=== PATIENT | female | born 1965 | race American Indian/Alaskan Native ===

== ENCOUNTER 2016-12-12 19:17 | Inpatient (IN) | payer OTHER ==
[2016-12-12] MEDS ORDERED: Clindamycin Phosphate 900 MG in Sodium Chloride 0.9% 100 ML IV ONE (19:46)
[2016-12-12] MEDS ORDERED: Sodium Chloride 0.9% 1,000 ML IV ONE (19:46)
[2016-12-12] MEDS ORDERED: Morphine 2 MG/ML Syringe IVPUSH ONE (19:48)
[2016-12-12] MEDS ORDERED: Ondansetron 4 MG/2 ML SDV IV ONE (19:48)
--- NOTE | 2016-12-12 19:50 | EDM.PDOC ---
ED HPI GENERAL MEDICAL PROBLEM - General Chief Complaint: Skin Complaint Stated Complaint: BITE THAT HAS GOTTEN WORSE Time Seen by Provider: 12/12/16 19:48 Source of Information: Reports: Patient History Limitations: Reports: No Limitations - History of Present Illness INITIAL COMMENTS - FREE TEXT/NARRATIVE: got bit week ago progressively getting worse today look really bad. Left Arm Pain Score (Numeric/FACES): 6 - Related Data Allergies Allergy/AdvReac Type Severity Reaction Status Date / Time aspirin Allergy Hives Verified 12/12/16 20:03 naproxen Allergy Hives Verified 12/12/16 20:03 Home Meds: Home Meds . [No Known Home Meds] 08/14/16 [History] Past Medical History Gastrointestinal History: Reports: GERD Musculoskeletal History: Reports: Other (See Below) Other Musculoskeletal History: pinched nerve in back, rotator cuff surg Rt. surg. with arthritis. Neurological History: Reports: Concussion - Past Surgical History Musculoskeletal Surgical History: Reports: Shoulder Surgery Social & Family History - Tobacco Use Smoking Status *Q: Never Smoker Second Hand Smoke Exposure: No - Caffeine Use Caffeine Use: Reports: Soda - Recreational Drug Use Recreational Drug Use: No ED ROS GENERAL - Review of Systems Review Of Systems: ROS reveals no pertinent complaints other than HPI. ED EXAM, SKIN/RASH Exam: See Below Exam Limited By: No Limitations General Appearance: Alert, WD/WN, Mild Distress, Other (pain) Ears: Hearing Grossly Normal Throat/Mouth: Normal Voice, No Airway Compromise Head: Atraumatic Neck: Non-Tender, Full Range of Motion Respiratory/Chest: No Respiratory Distress Cardiovascular: Regular Rate, Rhythm GI/Abdominal: Soft, Non-Tender Extremities: Redness, Other (left forearm abscess with cellulitis) Neurological: Alert, Oriented, Normal Cognition, Normal Gait, No Motor/Sensory Deficits Psychiatric: Tearful Skin: Erythema Location, Skin: Upper Extremity, Left Associated features: Warmth, Tenderness, Wwelling, Inflammation Lymphatic: No Adenopathy Course - Vital Signs Last Recorded V/S: Last Vital Signs Temp 37.9 C 12/12/16 19:49 Pulse 93 12/12/16 19:49 Resp 16 12/12/16 19:49 BP 120/73 12/12/16 19:49 Pulse Ox 98 12/12/16 19:49 - Orders/Labs/Meds Orders: Active Orders 24 hr Category Date Time Status CULTURE BLOOD [BC] Stat Lab 12/12/16 19:59 Received Sodium Chloride 0.9% [Normal Saline] 1,000 ml Med 12/12/16 19:46 Active IV .BOLUS Medication Orders Sodium Chloride (Normal Saline) 1,000 mls @ 500 mls/hr IV .BOLUS ONE Stop: 12/12/16 21:45 Last Admin: 12/12/16 20:12 Dose: 500 mls/hr Labs: Laboratory Tests 12/12/16 12/12/16 12/12/16 Range/Units 19:59 19:59 19:59 WBC 13.6 H (5.0-10.0) 10^3/uL RBC 4.71 (4.2-5.4) 10^6/uL Hgb 12.7 (12.0-16.0) g/dL Hct 39.7 (37.0-47.0) % MCV 84.3 (80-100) fL MCH 27.0 (27.0-34.0) pg MCHC 32.0 L (33.0-35.0) g/dL Plt Count 364 (150-450) 10^3/uL Neut % (Auto) 78.8 H (42.2-75.2) % Lymph % (Auto) 11.2 L (20.5-50.1) % Cross % (Auto) 7.3 (2-8) % Eos % (Auto) 2.6 (1.0-3.0) % Baso % (Auto) 0.1 (0.0-1.0) % Sodium 136 (135-145) mmol/L Potassium 3.9 (3.6-5.0) mmol/L Chloride 104 (101-111) mmol/L Carbon Dioxide 23.0 (21.0-31.0) mmol/L Anion Gap 12.9 BUN 16 (7-18) mg/dL Creatinine 0.6 (0.6-1.3) mg/dL Est Cr Clr Drug Dosing 99.82 mL/min Estimated GFR (MDRD) > 60 BUN/Creatinine Ratio 26.66 Glucose 122 H (74-105) mg/dL Lactic Acid 1.4 (0.5-2.2) mmol/L Calcium 8.8 (8.4-10.2) mg/dl Total Bilirubin 0.5 (0.2-1.0) mg/dL AST 41 (10-42) IU/L ALT 54 (10-60) IU/L Alkaline Phosphatase 86 (42-121) IU/L Total Protein 7.5 (6.7-8.2) g/dl Albumin 4.1 (3.2-5.5) g/dl Globulin 3.4 Albumin/Globulin Ratio 1.21 Meds: Medications Generic Name Dose Route Start Last Admin Trade Name Freq PRN Reason Stop Dose Admin Sodium Chloride 1,000 mls @ 500 mls/hr 12/12/16 19:46 12/12/16 20:12 Normal Saline IV 12/12/16 21:45 500 mls/hr .BOLUS ONE Administration Discontinued Medications Generic Name Dose Route Start Last Admin Trade Name Freq PRN Reason Stop Dose Admin Clindamycin Phosphate 900 mg/ 106 mls @ 200 mls/hr 12/12/16 19:46 12/12/16 20 :13 Sodium Chloride IV 12/12/16 20:17 200 mls/hr ONETIME ONE Administration Morphine Sulfate 2 mg 12/12/16 19:48 12/12/16 20:17 Morphine IVPUSH 12/12/16 19:49 2 mg ONETIME ONE Administration Ondansetron HCl 4 mg 12/12/16 19:48 12/12/16 20:16 Zofran IV 12/12/16 19:49 4 mg ONETIME ONE Administration - Re-Assessments/Exams Free Text/Narrative Re-Assessment/Exam: 12/12/16 20:[address] Padilla who kindly admitted Pt. Departure - Departure Time of Disposition: 20:46 Disposition: Admitted As Inpatient 66 Condition: good Clinical Impression: Abscess Cellulitis Qualifiers: Site of cellulitis: extremity Site of cellulitis of extremity: upper extremity Laterality: left Qualified Code(s): L03.114 - Cellulitis of left upper limb - Discharge Information Forms: ED Department Discharge - My Orders Last 24 Hours: My Active Orders 12/12/16 19:46 Sodium Chloride 0.9% [Normal Saline] 1,000 ml IV .BOLUS 12/12/16 19:59 CULTURE BLOOD [BC] Stat - Assessment/Plan Last 24 Hours: My Active Orders 12/12/16 19:46 Sodium Chloride 0.9% [Normal Saline] 1,000 ml IV .BOLUS 12/12/16 19:59 CULTURE BLOOD [BC] Stat
[2016-12-12 20:32] LABS: CHLORIDE,CL 104 mmol/L (101-111); SODIUM,NA 136 mmol/L (135-145)
[2016-12-12] MEDS ORDERED: Morphine 2 MG/ML Syringe IVPUSH PRN (21:21)
[2016-12-12] MEDS ORDERED: Docusate Sodium 100 MG Cap PO PRN (21:22)
[2016-12-12] MEDS ORDERED: Ondansetron 4 MG Tab.DIS PO PRN (21:22)
[2016-12-12] MEDS ORDERED: Acetaminophen 325 MG Tab PO PRN (21:22)
[2016-12-12] MEDS ORDERED: Polyethylene Glycol 3350 Powder 17 GM Packet PO PRN (21:22)
--- NOTE | 2016-12-12 21:33 | PCM.HP ---
H&P History of Present Illness - General Date of Service: 12/12/16 Admit Problem/Dx: Admission Diagnosis/Problem Admission Diagnosis/Problem Cellulitis Source of Information: Patient - History of Present Illness Initial Comments - Free Text/Narative: The patient is a 51-year-old lady with no significant past medical history. The patient developed left upper extremity indurated area associated with the redness around it. This started as a small pimple about a week prior to admission. She has been suspecting a spider bite. She has been feeling good fever, chills. There is small amount of drainage from the area. The redness was worsening and she presented to the emergency room. Left Arm Pain Score (Numeric/FACES): 6 - Related Data Allergies/Adverse Reactions: Allergies Allergy/AdvReac Type Severity Reaction Status Date / Time aspirin Allergy Hives Verified 12/12/16 20:03 naproxen Allergy Hives Verified 12/12/16 20:03 Home Medications: Home Meds . [No Known Home Meds] 08/14/16 [History] Past Medical History Gastrointestinal History: Reports: GERD Musculoskeletal History: Reports: Other (See Below) Other Musculoskeletal History: pinched nerve in back, rotator cuff surg Rt. surg. with arthritis. Neurological History: Reports: Concussion - Past Surgical History Musculoskeletal Surgical History: Reports: Shoulder Surgery Social & Family History - Family History Family Medical History: Noncontributory - Tobacco Use Smoking Status *Q: Never Smoker Second Hand Smoke Exposure: No - Caffeine Use Caffeine Use: Reports: Soda - Recreational Drug Use Recreational Drug Use: No H&P Review of Systems - Review of Systems: Review Of Systems: See Below General: Reports: Fever, Chills Pulmonary: Denies: Shortness of Breath Cardiovascular: Denies: Chest Pain Gastrointestinal: Denies: Abdominal Pain Genitourinary: Denies: Dysuria Skin: Reports: Wound, Other (redness) Psychiatric: Denies: Anxiety Exam - Exam Exam: See Below - Vital Signs Vital Signs: Last Vital Signs Temp 36.8 C 12/12/16 21:07 Pulse 93 12/12/16 19:49 Resp 16 12/12/16 19:49 BP 120/73 12/12/16 19:49 Pulse Ox 98 12/12/16 19:49 Weight: 78.471 kg - Exam General: Alert, Oriented Neck: Supple, Trachea Midline, 2 Lungs: Clear to Auscultation, Normal Respiratory Effort Cardiovascular: Regular Rate, Regular Rhythm Abdomen: Normal Bowel Sounds, Soft Back Exam: Other (left upper extremity an area of indurationerythema around it, small amount of pussy-appearing drainage) - Patient Data Result Diagrams: 12/12/16 19:59 12/12/16 19:59 *Q Meaningful Use (ADM) - VTE *Q VTE Criteria *Q: - Stroke *Q Stroke Criteria *Q: - AMI *Q AMI Criteria *Q: - Problem List (1) Abscess SNOMED Code(s): 575778989 ICD Code: L02.91 - CUTANEOUS ABSCESS, UNSPECIFIED Status: Acute Current Visit: Yes (2) Cellulitis SNOMED Code(s): 629687663 ICD Code: L03.90 - CELLULITIS, UNSPECIFIED Status: Acute Current Visit: Yes Qualifiers: Site of cellulitis: extremity Site of cellulitis of extremity: upper extremity Laterality: left Qualified Code(s): L03.114 - Cellulitis of left upper limb Problem List Initiated/Reviewed/Updated: Yes Orders Last 24hrs: Active Orders 24 hr Category Date Time Status Antiembolic Devices [RC] PER UNIT ROUTINE Care 12/12/16 21:24 Ordered Oxygen Therapy [RC] PRN Care 12/12/16 21:22 Ordered Peripheral IV Care [RC] . DIRECTED Care 12/12/16 21:24 Ordered Up With Assistance [RC] ASDIRECTED Care 12/12/16 21:22 Ordered VTE/DVT Education [RC] PER UNIT ROUTINE Care 12/12/16 21:22 Ordered Vital Signs [RC] Q4H Care 12/12/16 21:22 Ordered Regular Diet [DIET] Diet 12/12/16 Breakfast Ordered CULTURE WOUND + SMEAR [RM] Routine Lab 12/12/16 21:20 Uncollected Acetaminophen [Tylenol] Med 12/12/16 21:22 Ordered 650 mg PO Q4H PRN Clindamycin Phosphate [Cleocin] 600 mg Med 12/12/16 21:30 Ordered Sodium Chloride 0.9% [Normal Saline] 100 ml IV Q8H Docusate Sodium [Colace] Med 12/12/16 21:22 Ordered 100 mg PO BID PRN Heparin Sodium Med 12/12/16 22:00 Ordered 5,000 units SUBCUT Q8HR Morphine Med 12/12/16 21:21 Ordered 1 mg IVPUSH Q2H PRN Ondansetron [Zofran ODT] Med 12/12/16 21:22 Ordered 4 mg PO Q6H PRN Polyethylene Glycol 3350 [MiraLAX] Med 12/12/16 21:22 Ordered 17 gm PO DAILY PRN Sodium Chloride 0.9% [Saline Flush] Med 12/12/16 21:22 Ordered 10 ml FLUSH ASDIRECTED PRN Zolpidem [Ambien] Med 12/12/16 21:22 Ordered 5 mg PO BEDTIME PRN oxyCODONE Med 12/12/16 21:21 Ordered 5 mg PO Q4H PRN Antiembolic Hose [OM.PC] Per Unit Routine Ot 12/12/16 21:23 Ordered Blood Culture x2 Reflex Set [OM.PC] Stat Ot 12/12/16 21:19 Ordered Peripheral IV Insertion Adult [OM.PC] Routine Oth 12/12/16 21:22 Ordered Saline Lock Insert [OM.PC] Routine Oth 12/12/16 21:22 Ordered Resuscitation Status Routine Resus Stat 12/12/16 21:22 Ordered Medication Orders Acetaminophen (Tylenol) 650 mg PO Q4H PRN PRN Reason: Pain (Mild 1-3)/fever Docusate Sodium (Colace) 100 mg PO BID PRN PRN Reason: Constipation Heparin Sodium (Porcine) (Heparin Sodium) 5,000 units SUBCUT Q8HR [facility] Clindamycin Phosphate 600 mg/ (Sodium Chloride) 104 mls @ 200 mls/hr IV Q8H [facility] Morphine Sulfate (Morphine) 1 mg IVPUSH Q2H PRN PRN Reason: Pain Ondansetron HCl (Zofran Odt) 4 mg PO Q6H PRN PRN Reason: nausea, able to take PO Oxycodone HCl (Oxycodone) 5 mg PO Q4H PRN PRN Reason: Pain Polyethylene Glycol (Miralax) 17 gm PO DAILY PRN PRN Reason: Constipation Sodium Chloride (Saline Flush) 10 ml FLUSH ASDIRECTED PRN PRN Reason: Keep Vein Open Zolpidem Tartrate (Ambien) 5 mg PO BEDTIME PRN PRN Reason: Sleep Assessment/Plan Comment:: 51-year-old lady who presented with subjective fever, chills the patient noted the left upper extremity pain pill that has been getting bigger and the redness around it. Cellulitis There appear to be a small amount of fluctuance Will monitor for drainage were to see if the abscess needs to be opened up We'll obtain blood cultures, wound culture The patient is from an area where MRSA is common. Start treatment with IV clindamycin pain control with Tylenol, oxycodone, IV morphine as needed DVT prophylaxis will be the subcutaneous heparin
[2016-12-12] MEDS: Clindamycin Phosphate 600 MG in Sodium Chloride 0.9% 100 ML IV SCH (22:49)
[2016-12-12] MEDS: Heparin Sodium 5,000 Units/ML Vial SUBCUT SCH (22:51)
[2016-12-12] MEDS: oxyCODONE 5 MG Tab PO PRN (22:52)
[2016-12-12] MEDS: Zolpidem 5 MG Tab PO PRN (23:47)
[2016-12-13] MEDS: oxyCODONE 5 MG Tab PO PRN ×4 (05:11→23:01)
[2016-12-13] MEDS: Heparin Sodium 5,000 Units/ML Vial SUBCUT SCH ×3 (05:50→23:07)
[2016-12-13] MEDS: Clindamycin Phosphate 600 MG in Sodium Chloride 0.9% 100 ML IV SCH ×3 (05:50→23:03)
[2016-12-13] MEDS ORDERED: oxyCODONE 5 MG Tab PO PRN (12:09)
--- NOTE | 2016-12-13 12:18 | PCM.PN ---
- General Info Date of Service: 12/13/16 Admission Dx/Problem (Free Text): Admission Diagnosis/Problem Admission Diagnosis/Problem Cellulitis Subjective Update: continue to have a low-grade fever There is more pussy drainage from today left upper extremity indurated area There is associated mother at the sharp pain worse with touching - Review of Systems General: Reports: Fever Pulmonary: Denies: shortness of breath Cardiovascular: Denies: Chest Pain Gastrointestinal: Denies: Abdominal pain Neurological: Denies: Confusion - Patient Data Vitals - most recent: Last Vital Signs Temp 37.2 C 12/13/16 11:00 Pulse 91 12/13/16 11:00 Resp 20 12/13/16 11:00 BP 114/63 12/13/16 11:00 Pulse Ox 96 12/13/16 11:00 Weight - most recent: 80.059 kg I&O - last 24 hours: Intake & Output 12/12/16 12/13/16 12/13/16 22:59 06:59 14:59 Intake Total 400 298 Output Total 100 500 Balance -100 -100 298 Med Orders - Current: Current Medications Acetaminophen (Tylenol) 650 mg PO Q4H PRN PRN Reason: Pain (Mild 1-3)/fever Docusate Sodium (Colace) 100 mg PO BID PRN PRN Reason: Constipation Heparin Sodium (Porcine) (Heparin Sodium) 5,000 units SUBCUT Q8HR [facility] Last Admin: 12/13/16 05:50 Dose: 5,000 units Clindamycin Phosphate 600 mg/ (Sodium Chloride) 104 mls @ 200 mls/hr IV Q8H [facility] Last Admin: 12/13/16 05:50 Dose: 200 mls/hr Morphine Sulfate (Morphine) 1 mg IVPUSH Q2H PRN PRN Reason: Pain Last Admin: 12/13/16 09:48 Dose: 1 mg Ondansetron HCl (Zofran Odt) 4 mg PO Q6H PRN PRN Reason: nausea, able to take PO Oxycodone HCl (Oxycodone) 5 mg PO Q4H PRN PRN Reason: Pain Last Admin: 12/13/16 11:33 Dose: 5 mg Oxycodone HCl (Oxycodone) 10 mg PO Q4H PRN PRN Reason: severe pain Polyethylene Glycol (Miralax) 17 gm PO DAILY PRN PRN Reason: Constipation Sodium Chloride (Saline Flush) 10 ml FLUSH ASDIRECTED PRN PRN Reason: Keep Vein Open Zolpidem Tartrate (Ambien) 5 mg PO BEDTIME PRN PRN Reason: Sleep Last Admin: 12/12/16 23:47 Dose: 5 mg Discontinued Medications Clindamycin Phosphate 900 mg/ (Sodium Chloride) 106 mls @ 200 mls/hr IV ONETIME ONE Stop: 12/12/16 20:17 Last Admin: 12/12/16 20:13 Dose: 200 mls/hr Sodium Chloride (Normal Saline) 1,000 mls @ 500 mls/hr IV .BOLUS ONE Stop: 12/12/16 21:45 Last Admin: 12/12/16 20:12 Dose: 500 mls/hr Morphine Sulfate (Morphine) 2 mg IVPUSH ONETIME ONE Stop: 12/12/16 19:49 Last Admin: 12/12/16 20:17 Dose: 2 mg Ondansetron HCl (Zofran) 4 mg IV ONETIME ONE Stop: 12/12/16 19:49 Last Admin: 12/12/16 20:16 Dose: 4 mg - Exam General: alert, oriented Neck: supple Lungs: Clear to auscultation, Normal respiratory effort Cardiovascular: Regular Rate, Regular Rhythm Abdomen: bowel sounds present, soft, no tenderness, no distension Extremities: edema (left upper extremity around the indurated area) Skin: other (left upper extremity about a half inch area of wound with a blister , there is induration around it and pus drainage from it) - Problem List & Annotations (1) Abscess SNOMED Code(s): 761373555 Code(s): L02.91 - CUTANEOUS ABSCESS, UNSPECIFIED Status: Acute Current Visit: Yes (2) Cellulitis SNOMED Code(s): 096108519 Code(s): L03.90 - CELLULITIS, UNSPECIFIED Status: Acute Current Visit: Yes Qualifiers: Site of cellulitis: extremity Site of cellulitis of extremity: upper extremity Laterality: left Qualified Code(s): L03.114 - Cellulitis of left upper limb - Problem List Review Problem List Initiated/Reviewed/Updated: Yes - My Orders Last 24 Hours: My Active Orders 12/12/16 21:19 Blood Culture x2 Reflex Set [OM.PC] Stat 12/12/16 21:21 Morphine 1 mg IVPUSH Q2H PRN oxyCODONE 5 mg PO Q4H PRN 12/12/16 21:22 Oxygen Therapy [RC] PRN Up With Assistance [RC] ASDIRECTED VTE/DVT Education [RC] PER UNIT ROUTINE Vital Signs [RC] Q4H Acetaminophen [Tylenol] 650 mg PO Q4H PRN Docusate Sodium [Colace] 100 mg PO BID PRN Ondansetron [Zofran ODT] 4 mg PO Q6H PRN Polyethylene Glycol 3350 [MiraLAX] 17 gm PO DAILY PRN Sodium Chloride 0.9% [Saline Flush] 10 ml FLUSH ASDIRECTED PRN Zolpidem [Ambien] 5 mg PO BEDTIME PRN Peripheral IV Insertion Adult [OM.PC] Routine Saline Lock Insert [OM.PC] Routine Resuscitation Status Routine 12/12/16 21:23 Antiembolic Hose [OM.PC] Per Unit Routine 12/12/16 21:24 Antiembolic Devices [RC] PER UNIT ROUTINE Peripheral IV Care [RC] 08,20 12/12/16 22:00 Clindamycin Phosphate [Cleocin] 600 mg Sodium Chloride 0.9% [Normal Saline] 100 ml IV Q8H Heparin Sodium 5,000 units SUBCUT Q8HR 12/13/16 12:08 Wound Care [RC] Q8H 12/13/16 12:09 oxyCODONE 10 mg PO Q4H PRN 12/14/16 05:15 BASIC METABOLIC PANEL,BMP [CHEM] AM CBC WITH AUTO DIFF [HEME] AM - Plan Plan:: 51-year-old lady who presented with subjective fever, chills the patient noted the left upper extremity pain pill that has been getting bigger and the redness around it. Cellulitis the fluctuance has resolved, blister broke, good drainage of pus Will use wet-to-dry dressing 3 times a day blood cultures: pending wound culture: pending The patient is from an area where MRSA is common. Continue treatment with IV clindamycin pain control with Tylenol, oxycodone, IV morphine as needed DVT prophylaxis will be the subcutaneous heparin
[2016-12-13] MEDS: Sodium Chloride 0.9% 10 ML Syringe FLUSH PRN ×3 (13:42→23:03)
[2016-12-13] MEDS: Pantoprazole 40 MG Vial IVPUSH SCH (17:41)
[2016-12-14] MEDS: Zolpidem 5 MG Tab PO PRN (00:33)
[2016-12-14] MEDS: Clindamycin Phosphate 600 MG in Sodium Chloride 0.9% 100 ML IV SCH (06:33)
[2016-12-14] MEDS: Heparin Sodium 5,000 Units/ML Vial SUBCUT SCH (06:33)
[2016-12-14 07:01] LABS: CHLORIDE,CL 101 mmol/L (101-111); SODIUM,NA 134 mmol/L (135-145)
[2016-12-14] MEDS: Pantoprazole 40 MG Vial IVPUSH SCH (09:54)
--- NOTE | 2016-12-14 10:16 | PCM.DCSUM1 ---
Discharge Summary - Hospital Course Free Text/Narrative:: 51-year-old lady who presented with subjective fever, chills the patient noted left upper extremity pimple that has been getting bigger and developed redness around it. Cellulitis the hardened area is getting softer, more fluctuance noted with drainage of pus the area of redness has increased somewhat in the past 24 h have been using wet-to-dry dressing 3 times a day with moist heat blood cultures: pending wound culture: pending The patient is from an area where MRSA is common. Treated with IV clindamycin pain control with Tylenol, oxycodone, IV morphine as needed I believe a surgical evaluation for possible abscess drain and incision would be reasonable surgical services are not available here Contacted [facility] for transfer - Discharge Data Discharge Date: 12/14/16 Discharge Disposition: DC/Tfer to [facility] 02 Condition: Good - Discharge Diagnosis/Problem(s) (1) Abscess SNOMED Code(s): 795056676 ICD Code: L02.91 - CUTANEOUS ABSCESS, UNSPECIFIED Status: Acute Current Visit: Yes (2) Cellulitis SNOMED Code(s): 310594489 ICD Code: L03.90 - CELLULITIS, UNSPECIFIED Status: Acute Current Visit: Yes Qualifiers: Site of cellulitis: extremity Site of cellulitis of extremity: upper extremity Laterality: left Qualified Code(s): L03.114 - Cellulitis of left upper limb - Patient Instructions Diet: Usual Diet as Tolerated Activity: As Tolerated - Discharge Plan Home Medications: Home Meds Clindamycin Phosphate [Cleocin] 600 mg IV Q8H sdv 12/14/16 [Rx] Heparin Sodium 5,000 units SUBCUT Q8HR vial 12/14/16 [Rx] Patient Handouts: Cellulitis, Adult, [id number] - Discharge Summary/Plan Comment DC Time >30 min.: Yes (arranging transfer, calling [facility] ) - General Info Admission Dx/Problem (Free Text: Admission Diagnosis/Problem Admission Diagnosis/Problem Cellulitis Subjective Update: There is more pussy drainage from today left upper extremity indurated area the redness has spread a little more There is associated moderate sharp pain worse with touching - Review of Systems Pulmonary: Denies: shortness of breath Cardiovascular: Denies: Chest Pain Gastrointestinal: Denies: Abdominal pain Genitourinary: Denies: dysuria - Patient Data Vitals - Most Recent: Last Vital Signs Temp 36.9 C 12/14/16 07:00 Pulse 79 12/14/16 07:00 Resp 20 12/14/16 07:00 BP 112/60 12/14/16 07:00 Pulse Ox 98 12/14/16 07:00 Weight - Most Recent: 80.059 kg I&O - Last 24 hours: Intake & Output 12/13/16 12/14/16 12/14/16 22:59 06:59 14:59 Intake Total 765 100 Output Total 1400 325 Balance -635 -225 Lab Results - Last 24 hrs: Laboratory Results - last 24 hr 12/14/16 12/14/16 Range/Units 06:10 06:10 WBC 12.5 H (5.0-10.0) 10^3/uL RBC 4.30 (4.2-5.4) 10^6/uL Hgb 11.5 L (12.0-16.0) g/dL Hct 36.2 L (37.0-47.0) % MCV 84.2 (80-100) fL MCH 26.7 L (27.0-34.0) pg MCHC 31.8 L (33.0-35.0) g/dL Plt Count 351 (150-450) 10^3/uL Neut % (Auto) 71.4 (42.2-75.2) % Lymph % (Auto) 20.3 L (20.5-50.1) % [place] % (Auto) 7.0 (2-8) % Eos % (Auto) 1.2 (1.0-3.0) % Baso % (Auto) 0.1 (0.0-1.0) % Sodium 134 L (135-145) mmol/L Potassium 3.6 (3.6-5.0) mmol/L Chloride 101 (101-111) mmol/L Carbon Dioxide 24.0 (21.0-31.0) mmol/L Anion Gap 12.6 BUN 12 (7-18) mg/dL Creatinine 0.6 (0.6-1.3) mg/dL Est Cr Clr Drug Dosing 99.82 mL/min Estimated GFR (MDRD) > 60 Glucose 95 (74-105) mg/dL Calcium 8.5 (8.4-10.2) mg/dl Med Orders - Current: Current Medications Acetaminophen (Tylenol) 650 mg PO Q4H PRN PRN Reason: Pain (Mild 1-3)/fever Last Admin: 12/13/16 13:50 Dose: 650 mg Docusate Sodium (Colace) 100 mg PO BID PRN PRN Reason: Constipation Heparin Sodium (Porcine) (Heparin Sodium) 5,000 units SUBCUT Q8HR [facility] Last Admin: 12/14/16 06:33 Dose: 5,000 units Clindamycin Phosphate 600 mg/ (Sodium Chloride) 104 mls @ 200 mls/hr IV Q8H [facility] Last Admin: 12/14/16 06:33 Dose: 200 mls/hr Morphine Sulfate (Morphine) 1 mg IVPUSH Q2H PRN PRN Reason: Pain Last Admin: 12/13/16 09:48 Dose: 1 mg Ondansetron HCl (Zofran Odt) 4 mg PO Q6H PRN PRN Reason: nausea, able to take PO Last Admin: 12/13/16 16:01 Dose: 4 mg Oxycodone HCl (Oxycodone) 5 mg PO Q4H PRN PRN Reason: Pain Last Admin: 12/13/16 23:01 Dose: 5 mg Oxycodone HCl (Oxycodone) 10 mg PO Q4H PRN PRN Reason: severe pain Pantoprazole Sodium (Protonix Iv) 40 mg IVPUSH DAILY [facility] Last Admin: 12/14/16 09:54 Dose: 40 mg Polyethylene Glycol (Miralax) 17 gm PO DAILY PRN PRN Reason: Constipation Sodium Chloride (Saline Flush) 10 ml FLUSH ASDIRECTED PRN PRN Reason: Keep Vein Open Last Admin: 12/13/16 23:03 Dose: 10 ml Zolpidem Tartrate (Ambien) 5 mg PO BEDTIME PRN PRN Reason: Sleep Last Admin: 12/14/16 00:33 Dose: 5 mg Discontinued Medications Clindamycin Phosphate 900 mg/ (Sodium Chloride) 106 mls @ 200 mls/hr IV ONETIME ONE Stop: 12/12/16 20:17 Last Admin: 12/12/16 20:13 Dose: 200 mls/hr Sodium Chloride (Normal Saline) 1,000 mls @ 500 mls/hr IV .BOLUS ONE Stop: 12/12/16 21:45 Last Admin: 12/12/16 20:12 Dose: 500 mls/hr Morphine Sulfate (Morphine) 2 mg IVPUSH ONETIME ONE Stop: 12/12/16 19:49 Last Admin: 12/12/16 20:17 Dose: 2 mg Ondansetron HCl (Zofran) 4 mg IV ONETIME ONE Stop: 12/12/16 19:49 Last Admin: 12/12/16 20:16 Dose: 4 mg - Exam General: Reports: alert, oriented Neck: Reports: supple Lungs: Reports: Clear to auscultation, Normal respiratory effort Cardiovascular: Reports: Regular Rate, Regular Rhythm Extremities: Reports: other (left upper area of palpable abscess, nduration, redness extending the previous) Skin: Reports: warm Psy/Mental Status: Reports: alert, normal affect, normal mood *Q Meaningful Use (DIS) - VTE *Q VTE Criteria *Q: - Stroke *Q Stroke Criteria *Q: - AMI *Q AMI Criteria *Q:
[2016-12-14] MEDS ORDERED: Meclizine 12.5 MG Tab PO ONE (11:17)
[2016-12-14 11:21] VITALS: BP 112/59
== END 2016-12-14 11:30 | DRG 603 ==
LOC: DL.ED 19:17 → EEVIPCON 21:00 → DL.MS 21:00
PROVIDERS: ADMIT Internal Medicine; ATTEND Internal Medicine
DX: L03.114 Cellulitis of left upper limb (principal); L02.414 Cutaneous abscess of left upper limb; Z88.8 Allergy status to other drugs, medicaments and biological substances
CPT/HCPCS: 36415; 80048; 80053; 83605; 85025; 87040; 87070; 87077; 87186; 96365; 96375; 99283; A9270-GY; C9113; J1644; J2270; J2405; J7030; J7050; S0077

== ENCOUNTER 2019-09-09 04:18 | Emergency (ER) | payer BC, OTHER ==
[2019-09-09] MEDS: GI Cocktail Oral Solution 30 ML PO ONE (04:45)
[2019-09-09 04:53] LABS: ANION GAP 15.6; CHLORIDE,CL 102 mmol/L (101-111); SODIUM,NA 136 mmol/L (135-145)
[2019-09-09] MEDS: Famotidine 20 MG/2 ML SDV IVPUSH ONE (05:02)
--- NOTE | 2019-09-09 05:25 | EDM.PDOC ---
ED HPI GENERAL MEDICAL PROBLEM - General Chief Complaint: Abdominal Pain Stated Complaint: PAIN MIDDLE OF STOMACH, HARD TO BREATH Time Seen by Provider: 09/09/19 04:30 Source of Information: Reports: Patient, RN Notes Reviewed History Limitations: Reports: No Limitations - History of Present Illness INITIAL COMMENTS - FREE TEXT/NARRATIVE: ED with c/o epigastric pain, similar to previous episode of acid refulx. Tonight ate fried chicken for supper, worke with pain, forced emesis x 2 to relieve discomfort, then had 2 loose stools No fever or chills tonight. States had MRI 2 weeks ago and was told had gall stones. Has been wating for call back from [facility]. No SOB, No chest pain. Epigastric Pain Score (Numeric/FACES): 7 - Related Data Allergies Allergy/AdvReac Type Severity Reaction Status Date / Time aspirin Allergy Hives Verified 09/09/19 04:33 ibuprofen Allergy Hives Verified 09/09/19 04:33 naproxen Allergy Hives Verified 09/09/19 04:33 cats Allergy Hives Uncoded 09/09/19 04:33 Home Meds: Home Meds Cholecalciferol (Vitamin D3) [Vitamin D3] 1,000 units PO DAILY 08/17/19 [History ] Letrozole 2.5 mg PO DAILY 08/17/19 [History] Multivitamin [Multivitamins] 1 tab PO DAILY 08/17/19 [History] Past Medical History - Past Health History Medical/Surgical History: Denies Medical/Surgical History HEENT History: Reports: None Cardiovascular History: Reports: None Respiratory History: Reports: Bronchitis, Recurrent Gastrointestinal History: Reports: GERD Genitourinary History: Reports: None 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 shoulder. with arthritis. Neurological History: Reports: Concussion, Migraines Psychiatric History: Reports: None Endocrine/Metabolic History: Reports: None Hematologic History: Reports: None Immunologic History: Reports: None Oncologic (Cancer) History: Reports: Breast Dermatologic History: Reports: None - Infectious Disease History Infectious Disease History: Reports: None - Past Surgical History Cardiovascular Surgical History: Reports: None Respiratory Surgical History: Reports: None GI Surgical History: Reports: None Female Surgical History: Reports: Breast Biopsy, Other (See Below) Other Female Surgeries/Procedures: R) breast lumpectomy Musculoskeletal Surgical History: Reports: Shoulder Surgery Oncologic Surgical History: Reports: Biopsy of Breast Social & Family History - Family History Family Medical History: Noncontributory - Tobacco Use Smoking Status *Q: Never Smoker - Caffeine Use Caffeine Use: Reports: None - Recreational Drug Use Recreational Drug Use: No ED ROS GENERAL - Review of Systems Review Of Systems: Comprehensive ROS is negative, except as noted in HPI. ED EXAM, GI/ABD - Physical Exam Exam: See Below Exam Limited By: No Limitations General Appearance: Alert, Mild Distress Ears: Normal External Exam Nose: Normal Inspection Throat/Mouth: Normal Inspection, Normal Lips, Normal Voice Neck: Normal Inspection Respiratory/Chest: No Respiratory Distress, Lungs Clear Cardiovascular: Normal Peripheral Pulses, Regular Rate, Rhythm GI/Abdominal Exam: Normal Bowel Sounds, Soft, Tender (epigastric) Rectal (Female) Exam: Normal Exam Back Exam: Normal Inspection Extremities: Normal Inspection Neurological: Alert, Oriented, Normal Cognition Psychiatric: Normal Mood Skin Exam: Warm, Dry, Intact, Normal Color Course - Vital Signs Last Recorded V/S: Last Vital Signs Temp 96.6 F L 09/09/19 04:24 Pulse 72 09/09/19 04:24 Resp 19 09/09/19 04:24 BP 158/78 H 09/09/19 04:24 Pulse Ox 97 09/09/19 04:24 - Orders/Labs/Meds Labs: Laboratory Tests 09/09/19 09/09/19 Range/Units 04:25 04:25 WBC 9.1 (5.0-10.0) 10^3/uL RBC 5.00 (4.2-5.4) 10^6/uL Hgb 13.5 D (12.0-16.0) g/dL Hct 41.0 (37.0-47.0) % MCV 82.0 (80-100) fL MCH 27.0 (27.0-34.0) pg MCHC 32.9 L (33.0-35.0) g/dL Plt Count 341 (150-450) 10^3/uL Neut % (Auto) 59.2 (42.2-75.2) % Lymph % (Auto) 30.4 (20.5-50.1) % [place] % (Auto) 7.7 (2-8) % Eos % (Auto) 2.5 (1.0-3.0) % Baso % (Auto) 0.2 (0.0-1.0) % Sodium 136 (135-145) mmol/L Potassium 3.6 (3.6-5.0) mmol/L Chloride 102 (101-111) mmol/L Carbon Dioxide 22.0 (21.0-31.0) mmol/L Anion Gap 15.6 BUN 16 (7-18) mg/dL Creatinine 0.5 L (0.6-1.3) mg/dL Est Cr Clr Drug Dosing 111.07 mL/min Estimated GFR (MDRD) > 60 BUN/Creatinine Ratio 32.00 Glucose 240 H (74-105) mg/dL Calcium 9.2 (8.4-10.2) mg/dl Total Bilirubin 0.6 (0.2-1.0) mg/dL AST 96 H (10-42) IU/L ALT 157 H (10-60) IU/L Alkaline Phosphatase 176 H (42-121) IU/L Total Protein 7.9 (6.7-8.2) g/dl Albumin 4.3 (3.2-5.5) g/dl Globulin 3.6 Albumin/Globulin Ratio 1.19 Amylase 45 (28-100) U/L Lipase 43 (22-51) U/L Meds: Medications Discontinued Medications Generic Name Dose Route Start Last Admin Trade Name Freq PRN Reason Stop Dose Admin Al Hydroxide/Mg Hydroxide 30 ml 09/09/19 04:37 09/09/19 04:45 Gi Cocktail PO 09/09/19 04:38 30 ml ONETIME ONE Administration Famotidine 20 mg 09/09/19 04:57 09/09/19 05:02 Pepcid IVPUSH 09/09/19 04:58 20 mg ONETIME ONE Administration Departure - Departure Time of Disposition: 05:20 Disposition: Home, Self-Care 01 Condition: Good Clinical Impression: Elevated LFTs, History of calculus of gallbladder Acid reflux Qualifiers: Esophagitis presence: without esophagitis Qualified Code(s): K21.9 - Gastro- esophageal reflux disease without esophagitis - Discharge Information *PRESCRIPTION DRUG MONITORING PROGRAM REVIEWED*: No *COPY OF PRESCRIPTION DRUG MONITORING REPORT IN PATIENT CALVIN: No Instructions: Food Choices for Gastroesophageal Reflux Disease, Adult Additional Instructions: follow up with primary care this week light diet, bland, low fat maalox or similar as needed urgent follow up severe pain, fever and chills avoid alcohol limit use of tylenol Sepsis Event Note - Evaluation Sepsis Screening Result: No Definite Risk - Focused Exam Vital Signs: Vital Signs Temp Pulse Resp BP Pulse Ox 09/09/19 04:24 96.6 F L 72 19 158/78 H 97 Date Exam was Performed: 09/09/19 Time Exam was Performed: 05:20
[2019-09-09 05:29] VITALS: BP 134/76; PULSE 78
== END 2019-09-09 05:26 | disposition home or self-care (01) ==
LOC: DL.ED 04:18
DX: K21.9 Gastro-esophageal reflux disease without esophagitis (principal); R74.8 Abnormal levels of other serum enzymes; Z88.6 Allergy status to analgesic agent; Z88.8 Allergy status to other drugs, medicaments and biological substances; Z91.048 Other nonmedicinal substance allergy status
CPT/HCPCS: 36415; 80053; 82150; 83690; 85025; 96374; 99284-25; A9270-GY; J3490

== ENCOUNTER 2020-01-31 07:26 | Day surgery (SDC) | payer MEDICAID, OTHER ==
[2020-01-31] MEDS ORDERED: fentaNYL 100 MCG/2 ML SDV IV ONE (07:27)
[2020-01-31] MEDS ORDERED: Glycopyrrolate 0.2 MG/ML 2 ML SDV IV ONE (07:27)
[2020-01-31] MEDS ORDERED: Dexamethasone 4 MG/ML SDV IV ONE (07:27)
[2020-01-31] MEDS ORDERED: Midazolam 1 MG/ML 2 ML SDV IV ONE (07:27)
[2020-01-31] MEDS ORDERED: Lactated Ringers 1,000 ML IV ONE (07:27)
[2020-01-31] MEDS ORDERED: Labetalol 20 MG/4 ML Syringe IV ONE (07:27)
[2020-01-31] MEDS ORDERED: Neostigmine Methylsulfate 10 MG/10 ML MDV IV ONE (07:27)
[2020-01-31] MEDS ORDERED: Propofol 200 MG/20 ML SDV IV ONE (07:27)
[2020-01-31] MEDS ORDERED: Ondansetron 4 MG/2 ML SDV IV ONE (07:27)
[2020-01-31] MEDS ORDERED: Rocuronium 100 MG/10 ML MDV IV ONE (07:27)
[2020-01-31] MEDS ORDERED: Lactated Ringers 1,000 ML IV SCH (08:30)
[2020-01-31] MEDS ORDERED: ceFAZolin 2 GM in Premix Bag 1 BAG IV ONE (09:15)
[2020-01-31] MEDS ORDERED: Morphine 2 MG/ML SYRINGE IVPUSH PRN (10:50)
[2020-01-31] MEDS ORDERED: Sodium Chloride 0.9% 10 ML Syringe FLUSH PRN (10:52)
[2020-01-31] MEDS: Acetaminophen/oxyCODONE 325-5 MG Tab PO PRN ×2 (11:35→18:22)
--- NOTE | 2020-01-31 11:45 | OR ---
DATE: 01/31/2020 PREOPERATIVE DIAGNOSES: Chronic cholecystitis and cholelithiasis. POSTOPERATIVE DIAGNOSES: Chronic cholecystitis and cholelithiasis. PROCEDURE: Laparoscopic cholecystectomy. ANESTHESIA: General. ESTIMATED BLOOD LOSS: Minimal. SPECIMENS: Gallbladder and stone. INDICATION FOR PROCEDURE: This 54-year-old female has epigastric and right upper quadrant abdominal pain. Has a known gallstone. DESCRIPTION OF PROCEDURE: After adequate preparation, a Veress needle was placed intra-abdominally for insufflation. The abdomen was then insufflated. A 5 mm trocar was placed in the infraumbilical area and the camera inserted. Three other trocars were placed under direct vision. Examination showed dense adhesions of the omentum to the gallbladder. These had to be taken down by cautery dissection. The gallbladder wall was mildly thickened and densely adherent to the liver bed, and the cystic triangle structures were dissected free, triply clipped, and divided. The gallbladder was taken off the liver bed using cautery dissection. There was a cystotomy made in the gallbladder with leakage of bile. The rest of the bile was suctioned out of the gallbladder and the bile in the right upper quadrant was irrigated clear. The gallbladder after it was removed from the liver bed was placed in a sterile retrieval bag and brought out through the epigastric trocar site. The right upper quadrant was irrigated with another liter of saline and suctioned clear. No other abnormalities were noted. Air was suctioned from the abdomen. The trocars removed and the skin closed with Vicryl. [facility] /[id number]
[2020-01-31] MEDS: Ondansetron 4 MG/2 ML SDV IVPUSH PRN ×2 (13:25→18:43)
[2020-01-31] MEDS: Acetaminophen/HYDROcodone 325-5 MG Tab PO PRN (20:58)
[2020-02-01] MEDS: Acetaminophen/HYDROcodone 325-5 MG Tab PO PRN (01:34)
[2020-02-01 08:11] VITALS: BP 109/69; PULSE 58
--- NOTE | 2020-02-01 09:28 | PCM.SN.2 ---
- Free Text/Narrative Note: Stable POD #1. VSS. PO liquids tolerated. Pain controlled. Hgb 12. Dressing stopped bleeding. Ambulates on own. November discharge. Hydrocodone #10 given for pain. FU my clinic week of Feb 24. No restrictions on diet or activity.
== END 2020-02-01 11:05 | disposition home or self-care (01) ==
LOC: DL.SDS 07:26 → EDSTATUS 09:00 → DL.MS 10:50 → DL.SDS 02-01 11:05
PROVIDERS: ATTEND Surgery
DX: K80.10 Calculus of gallbladder with chronic cholecystitis without obstruction (principal); K21.9 Gastro-esophageal reflux disease without esophagitis; Z88.6 Allergy status to analgesic agent; Z88.8 Allergy status to other drugs, medicaments and biological substances
CPT/HCPCS: 36415; 47562; 85025; 93005; A9270; J0690; J2270; J2405; J7120; 00790; J1100; J2250; J2704; J2710; J3010; J3490

== ENCOUNTER 2022-08-05 22:06 | Emergency (ER) | payer MEDICAID ==
[2022-08-05] MEDS ORDERED: Bupivacaine 0.25% 10 ML SDV INJECT ONE (22:39)
[2022-08-05] MEDS ORDERED: Diphtheria,Pertussis(Acell),Tetanus Vaccine 0.5 ML Syringe IM ONE (22:42)
[2022-08-05 22:49] VITALS: BP 133/90; PULSE 81
[2022-08-05] MEDS ORDERED: Lidocaine 1% 10 ML MDV INJECT ONE (22:57)
[2022-08-05] MEDS ORDERED: Bacitracin Oint 1 GM U/D Packet TOP ONE (23:26)
== END 2022-08-06 | disposition home or self-care (01) ==
LOC: DL.ED 22:06
DX: S61.213A Laceration without foreign body of left middle finger without damage to nail, initial encounter (principal); K21.9 Gastro-esophageal reflux disease without esophagitis; Z79.899 Other long term (current) drug therapy; Z88.8 Allergy status to other drugs, medicaments and biological substances; Z23 Encounter for immunization; Z88.6 Allergy status to analgesic agent; Z91.048 Other nonmedicinal substance allergy status; W23.0XXA Caught, crushed, jammed, or pinched between moving objects, initial encounter
CPT/HCPCS: 12001; 73140; 90471; 90715; 99283; A9270; J3490

== ENCOUNTER 2025-01-25 00:09 | Emergency (ER) | payer OTHER, MEDICAID ==
[2025-01-25] MEDS ORDERED: Sodium Chloride 0.9% 10 ML Syringe IV ONE (00:10)
[2025-01-25 00:38] LABS: BASOPHILS PERCENT AUTO 0.2 % (0.0-1.0); EOSINOPHILS PERCENT AUTO 3.9 % (1.0-3.0); LYMPHOCYTES PERCENT AUTO 30.7 % (20.5-50.1); MONOCYTES PERCENT AUTO 6.8 % (2-8); NEUTROPHILS PERCENT AUTO 58.4 % (42.2-75.2); PLATELET COUNT,PLT 305 10^3/uL (150-450); RED BLOOD CELL COUNT 4.95 10^6/uL (4.2-5.4); WHITE BLOOD CELL COUNT,WBC 10.3 10^3/uL (5.0-10.0)
[2025-01-25 00:47] LABS: A/G RATIO 1.1; ALANINE AMINOTRANSFERASE,ALT 44 U/L (14-59); ASPARTATE AMNIOTRANSFERASE,AST 25 U/L (15-37); BILIRUBIN TOTAL 0.5 mg/dL (0.2-1.0); BLOOD UREA NITROGEN,BUN 18 mg/dL (7-18); CARBON DIOXIDE,CO2 25 mmol/L (21-32); CHLORIDE,CL 103 mmol/L (98-107); CREATININE 0.77 mg/dL (0.55-1.02); GLUCOSE RANDOM 235 mg/dL (70-99); POTASSIUM,K 3.6 mmol/L (3.5-5.1); PROTEIN TOTAL,TP 7.7 g/dL (6.4-8.2); SODIUM,NA 138 mmol/L (136-145)
[2025-01-25 00:51] LABS: ESTIMATED GFR 89 mL/min (>=60)
== END 2025-01-25 02:23 | disposition home or self-care (01) ==
LOC: DL.ED 00:09
DX: S06.0X1A Concussion with loss of consciousness of 30 minutes or less, initial encounter (principal); S33.5XXA Sprain of ligaments of lumbar spine, initial encounter; S43.402A Unspecified sprain of left shoulder joint, initial encounter; S13.4XXA Sprain of ligaments of cervical spine, initial encounter; M54.32 Sciatica, left side; K21.9 Gastro-esophageal reflux disease without esophagitis; Z79.899 Other long term (current) drug therapy; Z88.6 Allergy status to analgesic agent; Z88.8 Allergy status to other drugs, medicaments and biological substances; Z91.048 Other nonmedicinal substance allergy status; X58.XXXA Exposure to other specified factors, initial encounter
CPT/HCPCS: 36415; 70450; 71045; 72125; 72131; 72170; 73030-LT; 80053; 83690; 85025; 99284; 99285; A9270-GY